=== PATIENT | female | born 1990 | race Asian ===

== ENCOUNTER 2022-10-14 01:51 | Inpatient (IN) | payer OTHER ==
[2022-10-14 02:16] VITALS: BMI 25.0
[2022-10-14 03:21] LABS: Fetal Membranes Rupture No Membranes Rupture (No Rupture)
[2022-10-14] MEDS ORDERED: Ondansetron PF 4 MG/2 ML Vial IVP PRN ×3 (03:26→14:43)
[2022-10-14] MEDS ORDERED: Acetaminophen 500 MG TAB PO PRN (03:26)
[2022-10-14] MEDS ORDERED: Butorphanol Tartrate 1 MG/ML VIAL SLOW IVP PRN ×2 (03:26→05:14)
[2022-10-14] MEDS ORDERED: hydrALAZINE 20 MG/ML VIAL SLOW IVP PRN ×2 (03:26→14:43)
[2022-10-14 03:40] LABS: SARS-CoV-2 NAA Rapid Test Not Detected (NotDetected)
[2022-10-14 04:08] LABS: Hemoglobin 12.2 g/dL (12.0-15.5); Mean Corpuscular HGB CONC 34.5 g/dL (32.0-36.0); Mean Corpuscular Hemoglobin 31.4 pg (27.0-33.0); Mean Corpuscular Volume 91.2 fl (81.6-98.3); Mean Platelet Volume 10.2 fl (7.4-10.4); Platelet Count 255 10x3/uL (150-450); RBC Distribution Width 13.7 % (11.5-14.5); Red Blood Cell (RBC) Count 3.88 10x6/uL (3.90-5.03)
[2022-10-14 04:41] LABS: Syphilis Antibody Nonreactive (Nonreactive); Syphilis Antibody Index 0.04 S/CO (<1.00 Non-Reactive)
[2022-10-14 05:30] LABS: HBSAg Index 0.23 S/CO (0-0.99); Hep B Surf Ag Non-Reactive S/CO (NonReactive)
[2022-10-14] MEDS ORDERED: Fentanyl 2 mcg/Bup 0.1% Cadd 100 ML ONE (05:51)
[2022-10-14] MEDS ORDERED: Naloxone HCl 0.4 mg/ml Vial IVP PRN ×2 (06:39)
[2022-10-14] MEDS ORDERED: Acetaminophen 325 MG TAB PO PRN (06:39)
[2022-10-14] MEDS ORDERED: ePHEDrine Sulfate 50 MG/10 ML VIAL SLOW IVP PRN (06:39)
[2022-10-14] MEDS ORDERED: diphenhydrAMINE 50 MG/ML VIAL IVP PRN (06:39)
[2022-10-14] MEDS ORDERED: Promethazine HCl 25 MG/ML VIAL IM PRN (06:39)
[2022-10-14] MEDS ORDERED: Moisturizing Cream (Eucerin) 113 GM JAR TOP PRN (06:39)
[2022-10-14] MEDS ORDERED: Lactated Ringer's 500 ML IV PRN (06:39)
[2022-10-14] MEDS ORDERED: Communication Order-Pharmacy FS SCH (06:45)
[2022-10-14] MEDS ORDERED: Fentanyl 2 mcg/Bupivacaine 0.1% Cassette 100 ML EPIDURAL SCH (06:45)
[2022-10-14] MEDS ORDERED: Guaifenesin DM 100-10/5 ML UDCUP PO PRN (07:11)
[2022-10-14] MEDS ORDERED: Bupivacaine 0.25% HCL 30 ML VIAL ONE (08:00)
[2022-10-14] MEDS ORDERED: AMOXicillin 500 MG CAP PO SCH (09:00)
[2022-10-14] MEDS: Lactated Ringer's 1,000 ML IV SCH ×2 (10:08→14:43)
[2022-10-14] MEDS ORDERED: NS w/ Oxytocin 30 units 500 ML ONE ×2 (11:27→12:14)
[2022-10-14] MEDS ORDERED: Acetaminophen 325 MG TAB PO SCH (12:10)
[2022-10-14] MEDS: Acetaminophen 325 MG TAB PO PRN (12:17)
[2022-10-14] MEDS ORDERED: NS w/ Oxytocin 30 units 500 ML IV SCH (14:43)
[2022-10-14] MEDS ORDERED: Lanolin Ointment 7 GM TUBE TOP PRN (14:43)
[2022-10-14] MEDS ORDERED: Misoprostol 200 MCG TAB VAG PRN (14:43)
[2022-10-14] MEDS ORDERED: Boostrix 0.5 ML (Tdap) VIAL (>/=7 yrs of age) IM ONE (14:43)
[2022-10-14] MEDS ORDERED: Bisacodyl 10 MG SUPP PR PRN (14:43)
[2022-10-14] MEDS ORDERED: Benzocaine-Menthol 82.5 ML CAN TOP PRN (14:43)
[2022-10-14] MEDS ORDERED: Milk Of Magnesia 30 ML UDCUP PO PRN (14:43)
[2022-10-14] MEDS ORDERED: HYDROcodone/Acetaminophen 5/325 mg Tablet PO PRN (14:43)
[2022-10-14] MEDS: Ferrous Sulfate 325 MG TAB PO SCH (17:11)
[2022-10-14] MEDS: Ibuprofen 800 MG TAB PO SCH ×2 (17:11→17:20)
[2022-10-14] MEDS: Guaifenesin DM 100-10/5 ML UDCUP PO PRN (18:26)
[2022-10-15] MEDS: Guaifenesin DM 100-10/5 ML UDCUP PO PRN ×4 (00:26→23:08)
[2022-10-15] MEDS: Ibuprofen 800 MG TAB PO SCH ×3 (00:27→16:42)
[2022-10-15] MEDS: Docusate 100 MG CAP PO SCH ×3 (00:27→23:08)
[2022-10-15] MEDS: Acetaminophen 325 MG TAB PO PRN (04:38)
[2022-10-15] MEDS: Ferrous Sulfate 325 MG TAB PO SCH ×2 (08:56→15:01)
[2022-10-15] MEDS: Prenatal Vitamin 1 TAB PO SCH (08:59)
[2022-10-15] MEDS: HYDROcodone/Acetaminophen 5/325 mg Tablet PO PRN (17:24)
[2022-10-16] MEDS: Ibuprofen 800 MG TAB PO SCH ×2 (00:04→07:53)
[2022-10-16] MEDS: HYDROcodone/Acetaminophen 5/325 mg Tablet PO PRN (04:05)
[2022-10-16] MEDS: Guaifenesin DM 100-10/5 ML UDCUP PO PRN (04:44)
[2022-10-16] MEDS: Ferrous Sulfate 325 MG TAB PO SCH (07:16)
[2022-10-16] MEDS: Docusate 100 MG CAP PO SCH (07:53)
[2022-10-16] MEDS: Prenatal Vitamin 1 TAB PO SCH (07:54)
[2022-10-16 08:12] VITALS: BP 99/64; TEMP 97.7
== END 2022-10-16 13:05 | disposition home or self-care (01) | DRG 806 ==
LOC: CSHLD/OP 01:51 → CSHLD 05:13 → CSHPED 14:34
PROVIDERS: ADMIT Obstetrics & Gynecology; ATTEND Obstetrics & Gynecology
PROC: 10E0XZZ Delivery of Products of Conception, External Approach (ICD-10-PCS; principal; 2022-10-14)
DX: O99.893 Other specified diseases and conditions complicating puerperium (principal); O86.4 Pyrexia of unknown origin following delivery; Z37.0 Single live birth; Z3A.39 39 weeks gestation of pregnancy; Z20.822 Contact with and (suspected) exposure to COVID-19; R10.12 Left upper quadrant pain
CPT/HCPCS: 36415; 51702; 71046; 84112; 85027; 86762; 86780; 86850; 86900; 86901; 87070; 87081; 87205; 87340; 87430; 88307; 99285; J0595; J2590; J7120; S0020